=== PATIENT | male | born 1985 ===

== ENCOUNTER → 2017-07-09 | Emergency (ER) | payer OTHER ==
[~2017-07-09] VITALS: Ht 165.1 cm; Wt 93.0 kg
[~2017-07-09] MED LIST: GLIMEPIRIDE2 MG; METFORMIN HCL500 M2
== END | disposition home or self-care (01) ==
LOC: ER 10:57
DX: E11.43 Type 2 diabetes mellitus with diabetic autonomic (poly)neuropathy (principal); K31.84 Gastroparesis